=== PATIENT | female | born 1960 | race African-American/Black ===

== ENCOUNTER 2018-11-07 19:36 | Emergency (ER) | payer OTHER ==
--- NOTE | 2018-11-07 19:43 | PDOC ---
Rapid Medical Evaluation Time Seen by Provider: 11/07/18 19:38 Medical Evaluation: Allergies Allergy/AdvReac Type Severity Reaction Status Date / Time Penicillins Allergy Intermediate Hives Verified 11/15/13 10:12 11/07/18 19:39 I have performed a brief in-person evaluation of this patient. The patient presents with a chief complaint of: bumps on tongue x2 weeks Pertinent physical exam findings: firm lesion present to left posterior tongue I have ordered the following: rpr The patient will proceed to the ED for further evaluation. 11/07/18 19:43 Discharge Disposition - Diagnosis Tongue lesion - Referrals - Patient Instructions - Post Discharge Activity
[2018-11-07 19:44] VITALS: BP 158/74; PULSE 57; TEMP 97.5; BMI 26.1
--- NOTE | 2018-11-07 20:23 | PDOC ---
History of Present Illness - General Chief Complaint: Oral Ulcers Stated Complaint: PAIN IN MOUTH Time Seen by Provider: 11/07/18 19:38 - History of Present Illness Initial Comments: 11/07/18 20:22 58-year-old female presents for evaluation of 2 oral lesions was sent been present for the last 2 weeks. She has some difficulty swallowing no systemic symptoms. She is unsure what the lesions are. Past History - Past Medical History Allergies/Adverse Reactions: Allergies Allergy/AdvReac Type Severity Reaction Status Date / Time Penicillins Allergy Intermediate Hives Verified 11/07/18 19:39 Home Medications: Ambulatory Orders NK [No Known Home Medication] 11/07/18 Anemia: No Asthma: No Cancer: No Cardiac Disorders: No CVA: No COPD: No CHF: No Dementia: No Diabetes: No GI Disorders: No Disorders: No HTN: No Hypercholesterolemia: No Kidney Stones: No Seizures: Yes (etoh related Last 3 days ago) Thyroid Disease: No - Surgical History Orthopedic Surgery: Yes (L ankle fx sx in 2003 L shoulder sx for fx) - Reproductive History PID: No - Suicide/Smoking/Psychosocial Hx Smoking History: Current every day smoker Have you smoked in the past 12 months: Yes Number of Cigarettes Smoked Daily: 10 Information on smoking cessation initiated: No 'Breaking Loose' booklet given: 11/15/13 Hx Alcohol Use: No Drug/Substance Use Hx: No Substance Use Type: Alcohol Hx Substance Use Treatment: Yes ([facility] 10 years [facility]) Review of Systems - Review of Systems HEENTM: Yes: See HPI *Physical Exam - Vital Signs Last Vital Signs Temp Pulse Resp BP Pulse Ox 97.5 F L 57 L 15 158/74 98 11/07/18 19:40 11/07/18 19:40 11/07/18 19:40 11/07/18 19:40 11/07/18 19:40 - Physical Exam Comments: 11/07/18 20:21 HEAD: NC/AT EYES: Conjuntiva clear NOSE: No d/c THROAT: Moist mucous membrances, oral pharanx clear, uvula midline; there are 2 circumferentially discrete lesions subcentimeter on either side of the posterior aspect of the tongue. Without surrounding erythema. MS: Full ROM in all joints without edema NEUROLOGIC: No gross sensory or motor deficits, NVID SKIN: Normal color and temperature no lesions or rashes Medical Decision Making - Medical Decision Making 11/07/18 20:21 These lesions are unclear etiology I will have patient follow-up with oral surgery. No emergent intervention is necessary tonight. *DC/Admit/Observation/Transfer Diagnosis at time of Disposition: Tongue lesion - Discharge Dispostion Disposition: HOME Condition at time of disposition: Stable Decision to Admit order: No - Referrals Referrals: Desmond Bennett MD [Primary Care Provider] - Rocio Javed MD [Non Staff, Medical] - Leo Cooper [Staff Physician] - Hugo Hatch [Non Staff, Medical] - Mu Charles MD [Non Staff, Medical] - Michelle Arreaga DMD [Staff Physician] - Mu Steinberg [Non Staff, Medical] - Rudy Blanco [Staff Physician] - Olivier Delatorre MD [Non Staff, Medical] - Praful Maldonado MD [Non Staff, Medical] - Perry Michel MD [Non Staff, Medical] - Ta Hill MD [Non Staff, Medical] - Napoleon Calvillo MD [Non Staff, Medical] - Chapincito Day DDS [Non Staff, Medical] - Rodolfo Mcallister [Non Staff, Medical] - - Patient Instructions Additional Instructions: Follow-up with oral surgery in 1-2 days for further evaluation and treatment options return to the emergency room should symptoms worsen. - Post Discharge Activity
== END 2018-11-07 20:28 | disposition home or self-care (01) ==
LOC: JERFT 19:36
DX: K14.8 Other diseases of tongue (principal); G40.509 Epileptic seizures related to external causes, not intractable, without status epilepticus; F17.210 Nicotine dependence, cigarettes, uncomplicated; F10.10 Alcohol abuse, uncomplicated
CPT/HCPCS: 99281-25

== ENCOUNTER 2020-12-01 17:04 | Emergency (ER) | payer OTHER ==
[2020-12-01 17:15] VITALS: TEMP 98.7; BMI 27.4
[2020-12-01 18:47] LABS: BASO % 0.6 % (0-2.0); EOS % 1.5 % (0-4.5); HEMATOCRIT 41.9 % (32.4-45.2); LYMPH % 38.9 % (8-40); MCH 29.2 pg (25.7-33.7); MCHC 33.4 g/dl (32.0-36.0); MEAN CELL VOLUME 87.4 fl (80-96); MEAN PLT VOLUME 8.5 fl (7.5-11.1); MONO % 6.5 % (3.8-10.2); NEUT % 52.5 % (42.8-82.8); PLATELET COUNT 280 K/MM3 (134-434); RBC 4.79 M/mm3 (3.60-5.2); RDW 13.2 % (11.6-15.6); WHITE BLOOD COUNT 6.7 K/mm3 (4.0-10.0)
[2020-12-01] MEDS ORDERED: VANCOMYCIN 1 GM in D5W (PRE-DOCKED) 1,000 MG/250 ML IVPB ONE (18:54)
[2020-12-01] MEDS ORDERED: CEFTRIAXONE 1,000 MG in DEXTROSE 5%-WATER - 50 ML IVPB ONE (18:55)
[2020-12-01] MEDS ORDERED: CEFTRIAXONE 1 GM/50 ML BAG ONE (18:57)
[2020-12-01] MEDS ORDERED: morphine CARPU-JECT 4 MG/1 ML DISP.SYRIN IVPUSH ONE (18:59)
[2020-12-01] MEDS ORDERED: morphine SULFATE 4 MG/ML VIAL ONE (19:00)
[2020-12-01 19:01] LABS: CALCIUM 10.1 mg/dL (8.5-10.1)
[2020-12-01 19:02] LABS: ALBUMIN 3.6 g/dl (3.4-5.0); BLOOD UREA NITROGEN 12.2 mg/dL (7-18)
[2020-12-01 19:05] LABS: CREATININE 0.8 mg/dL (0.55-1.3)
[2020-12-01 19:06] LABS: BILIRUBIN,TOTAL 0.4 mg/dL (0.2-1)
[2020-12-01 19:07] LABS: TOT PROT 7.9 g/dl (6.4-8.2)
[2020-12-01 19:45] LABS: ERYTHROCYTE SEDIMENTATION RATE 54 mm/hr (0-30)
[2020-12-01] MEDS ORDERED: VANCOMYCIN 1 GRAM (PRE-DOCKED) 1,000 MG/250 ML BAG IVPB ONE (19:47)
[2020-12-01] MEDS ORDERED: CLINDAMYCIN 600MG PREMIX IVPB 600 MG/50 ML BAG IVPB ONE ×2 (20:01→20:26)
[2020-12-01] MEDS ORDERED: CLINDAMYCIN HCL 300 MG CAPSULE PO STA (20:35)
[2020-12-01] MEDS ORDERED: CLINDAMYCIN HCL 150 MG CAPSULE (FP) ONE (20:44)
[2020-12-01 20:56] VITALS: BP 135/76; PULSE 68
[2020-12-01 21:27] LABS: BF WBC & OTHER NUCLEATED CELLS 2596 /mm3
[2020-12-01 21:44] LABS: BODY FLUID MONOCYTE 20 %
== END 2020-12-01 22:05 | disposition home or self-care (01) ==
LOC: JER 17:04
PROC: 3E033GC Introduction of Other Therapeutic Substance into Peripheral Vein, Percutaneous Approach (ICD-10-PCS; principal; 2020-12-01)
DX: M25.562 Pain in left knee (principal)
CPT/HCPCS: 36415; 73560-TC-LT-FY; 80053; 85025; 85651; 86140; 87040; 87070; 87075; 87205; 93005; 93010; 99285-25; C9803; U0003; U0005

== ENCOUNTER 2021-12-14 21:18 | Inpatient (IN) | payer OTHER ==
[2021-12-15] MEDS ORDERED: KETOROLAC TROMETHAMINE 30 MG/1 ML VIAL IM ONE (00:21)
[2021-12-15] MEDS ORDERED: LIDOCAINE 5% TOPICAL PATCH TP ONE (00:21)
[2021-12-15] MEDS ORDERED: LIDOCAINE 5% TOPICAL PATCH ONE (00:25)
[2021-12-15] MEDS ORDERED: KETOROLAC TROMETHAMINE 30 MG/1 ML VIAL ONE (00:25)
[2021-12-15] MEDS ORDERED: ACETAMINOPHEN 325 MG TABLET (FP) ONE (04:47)
[2021-12-15] MEDS ORDERED: METHOCARBAMOL 500 MG TABLET ONE (04:47)
[2021-12-15] MEDS ORDERED: diazePAM 5 MG TABLET ONE (04:50)
[2021-12-15] MEDS ORDERED: ACETAMINOPHEN 500 MG TABLET (FP) PO ONE (04:51)
[2021-12-15] MEDS ORDERED: diazePAM 5 MG TABLET PO ONE (04:51)
[2021-12-15 08:25] LABS: CALCIUM 9.3 mg/dL (8.5-10.1)
[2021-12-15 08:26] LABS: ALBUMIN 3.7 g/dl (3.4-5.0); BLOOD UREA NITROGEN 12.2 mg/dL (7-18)
[2021-12-15 08:29] LABS: CREATININE 0.8 mg/dL (0.55-1.3)
[2021-12-15 08:31] LABS: BILIRUBIN,TOTAL 0.5 mg/dL (0.2-1); TOT PROT 7.3 g/dl (6.4-8.2)
[2021-12-15 09:02] LABS: HEMATOCRIT 40.1 % (32.4-45.2); HEMOGLOBIN 13.3 GM/dL (10.7-15.3); MCH 28.5 pg (25.7-33.7); MCHC 33.2 g/dl (32.0-36.0); MEAN CELL VOLUME 85.8 fl (80-96); MEAN PLT VOLUME 8.5 fl (7.5-11.1); PLATELET COUNT 238 10^3/uL (134-434); RBC 4.67 M/mm3 (3.60-5.2); RDW 13.4 % (11.6-15.6); WHITE BLOOD COUNT 8.1 K/mm3 (4.0-10.0)
[2021-12-15] MEDS ORDERED: morphine CARPU-JECT 2 MG/1 ML DISP.SYRIN IVPUSH ONE (09:45)
[2021-12-15] MEDS ORDERED: ACETAMINOPHEN 1000 MG/100 ML BAG IVPB PRN (10:01)
[2021-12-15] MEDS ORDERED: ENOXAPARIN NA (PORCINE) 40 MG/0.4 ML DISP.SYRIN SQ ONE (10:20)
[2021-12-15] MEDS: ENOXAPARIN NA (PORCINE) 40 MG/0.4 ML DISP.SYRIN SQ SCH (10:29)
[2021-12-15] MEDS ORDERED: CYCLOBENZAPRINE HCL 5 MG TABLET ONE (11:33)
[2021-12-15] MEDS: CYCLOBENZAPRINE HCL 5 MG TABLET PO ONE ×2 (11:36→18:29)
[2021-12-15 17:06] LABS: PH,URINE 6.5 (5.0-8.0); URINE APPEARANCE CLEAR; URINE BILIRUBIN NEGATIVE (NEGATIVE); URINE COLOR YELLOW; URINE GLUCOSE (UA) NEGATIVE (NEGATIVE); URINE KETONE NEGATIVE (NEGATIVE); URINE LEUK ESTERASE NEGATIVE (NEGATIVE); URINE NITRITE NEGATIVE (NEGATIVE); URINE PROTEIN NEGATIVE (NEGATIVE); URINE UROBILINOGEN 0.2 mg/dL (0.2-1.0)
[2021-12-16] MEDS: LIDOCAINE PATCH REMOVAL MC SCH (01:34)
[2021-12-16 03:50] VITALS: BMI 29.7
[2021-12-16] MEDS: ENOXAPARIN NA (PORCINE) 40 MG/0.4 ML DISP.SYRIN SQ SCH (09:37)
[2021-12-16] MEDS ORDERED: amLODIPine BESYLATE 5 MG TABLET (FP) PO SCH (10:00)
[2021-12-16] MEDS ORDERED: ACETAMINOPHEN 1000 MG/100 ML BAG IVPB PRN (11:00)
[2021-12-16 11:21] LABS: BASO % 0.3 % (0-2.0); EOS % 2.6 % (0-4.5); HEMOGLOBIN 13.1 GM/dL (10.7-15.3); LYMPH % 32.2 % (8-40); MCH 28.4 pg (25.7-33.7); MCHC 33.6 g/dl (32.0-36.0); MEAN CELL VOLUME 84.7 fl (80-96); MEAN PLT VOLUME 8.2 fl (7.5-11.1); MONO % 5.8 % (3.8-10.2); NEUT % 59.1 % (42.8-82.8); PLATELET COUNT 237 10^3/uL (134-434); RBC 4.61 M/mm3 (3.60-5.2); RDW 13.3 % (11.6-15.6); WHITE BLOOD COUNT 6.6 K/mm3 (4.0-10.0)
[2021-12-16 11:40] LABS: ALBUMIN 3.2 g/dl (3.4-5.0); BLOOD UREA NITROGEN 15.3 mg/dL (7-18); CALCIUM 9.1 mg/dL (8.5-10.1)
[2021-12-16 11:43] LABS: CREATININE 0.8 mg/dL (0.55-1.3); PHOSPHOROUS 3.3 mg/dL (2.5-4.9)
[2021-12-16 11:44] LABS: BILIRUBIN,TOTAL 0.4 mg/dL (0.2-1); TOT PROT 6.9 g/dl (6.4-8.2)
[2021-12-16 13:02] LABS: INR 0.91 (0.83-1.09); PROTHROMBIN TIME (PATIENT) 10.5 SEC (9.7-13.0)
[2021-12-16] MEDS: traMADol HCL 50 MG TABLET PO PRN (17:20)
[2021-12-16] MEDS ORDERED: PATIENT'S OWN MEDICATION (NON-FORMULARY) (Meloxicam [Meloxicam] 15 MG Tablet) PO SCH (22:00)
[2021-12-17] MEDS: LIDOCAINE PATCH REMOVAL MC SCH (00:43)
[2021-12-17] MEDS ORDERED: amLODIPine BESYLATE 5 MG TABLET (FP) PO ONE (07:29)
[2021-12-17] MEDS ORDERED: GENTAMICIN SO4 80 MG/2 ML VIAL ONE (07:44)
[2021-12-17] MEDS ORDERED: THROMBIN (BOVINE) 20,000 UNIT VIAL TP ONE (07:44)
[2021-12-17] MEDS ORDERED: LIDOCAINE 1%/EPI 1:100000 (20 ML MULTI DOSE VIAL) ONE (07:45)
[2021-12-17] MEDS ORDERED: TIZANIDINE HCL 2 MG TABLET PO PRN (12:42)
[2021-12-17 13:19] LABS: BASO % 0.8 % (0-2.0); EOS % 2.4 % (0-4.5); HEMATOCRIT 42.3 % (32.4-45.2); HEMOGLOBIN 14.5 GM/dL (10.7-15.3); LYMPH % 37.3 % (8-40); MCH 28.9 pg (25.7-33.7); MCHC 34.4 g/dl (32.0-36.0); MEAN CELL VOLUME 84.2 fl (80-96); MONO % 6.1 % (3.8-10.2); NEUT % 53.4 % (42.8-82.8); PLATELET COUNT 240 10^3/uL (134-434); RBC 5.02 M/mm3 (3.60-5.2); RDW 13.2 % (11.6-15.6); WHITE BLOOD COUNT 6.5 K/mm3 (4.0-10.0)
[2021-12-17 13:26] LABS: INR 0.98 (0.83-1.09); PROTHROMBIN TIME (PATIENT) 11.3 SEC (9.7-13.0)
[2021-12-17 13:29] LABS: ACTIVATED PTT 35.5 SECONDS (25.2-36.5)
[2021-12-17 13:42] LABS: BLOOD UREA NITROGEN 12.7 mg/dL (7-18); CALCIUM 9.2 mg/dL (8.5-10.1)
[2021-12-17 13:43] LABS: ALBUMIN 3.5 g/dl (3.4-5.0)
[2021-12-17 13:46] LABS: CREATININE 0.6 mg/dL (0.55-1.3)
[2021-12-17 13:47] LABS: BILIRUBIN,TOTAL 0.4 mg/dL (0.2-1); TOT PROT 7.2 g/dl (6.4-8.2)
[2021-12-17] MEDS ORDERED: ACETAMINOPHEN 500 MG TABLET (FP) PO SCH (14:00)
[2021-12-17] MEDS ORDERED: GABAPENTIN 300 MG CAPSULE PO SCH (14:00)
[2021-12-17 15:09] VITALS: TEMP 98.2
[2021-12-17] MEDS: traMADol HCL 50 MG TABLET PO PRN (15:57)
[2021-12-17 18:09] VITALS: BP 150/72; PULSE 59
[2021-12-17] MEDS ORDERED: LIDOCAINE PATCH REMOVAL MC SCH (22:00)
[2021-12-18] MEDS ORDERED: amLODIPine BESYLATE 5 MG TABLET (FP) PO SCH (10:00)
[2021-12-18] MEDS ORDERED: LIDOCAINE 5% TOPICAL PATCH TP SCH (10:00)
== END 2021-12-17 19:21 | disposition home health service (06) | DRG 347 ==
LOC: JERFT 21:18 → JERBED 12-15 06:41 → OBSVTOIN 12-15 15:39 → J5S 12-15 21:24
PROVIDERS: ADMIT Internal Medicine; ATTEND Internal Medicine
DX: M50.121 Cervical disc disorder at C4-C5 level with radiculopathy (principal); M48.02 Spinal stenosis, cervical region; I10 Essential (primary) hypertension; G40.909 Epilepsy, unspecified, not intractable, without status epilepticus; F17.210 Nicotine dependence, cigarettes, uncomplicated
CPT/HCPCS: 36415; 72125-TC; 72141-TC; 80053; 81003; 83735; 84100; 84443; 85025; 85027; 85610; 85730; 86850; 86900; 86901; 87086; 93306-TC; 97116-GP; 97161-GP; 99285-25; C9803-CS; G0378; U0003; U0005

== ENCOUNTER 2022-02-05 04:09 | Day surgery (SDC) | payer OTHER ==
[2022-02-02 16:06] VITALS: BMI 29.0
[2022-02-05] MEDS ORDERED: BUPIVACAINE HCL/PF 0.5% (5MG/ML) 10 ML VIAL ONE ×2 (08:04→12:44)
[2022-02-05] MEDS ORDERED: LIDOCAINE HCL/PF 1% SDV 5ML VIAL ONE (08:04)
[2022-02-05 10:26] VITALS: RESP 18
[2022-02-05] MEDS ORDERED: BUPIVACAINE HCL/PF 0.5% (5MG/ML) 10 ML VIAL IJ ONE (12:50)
[2022-02-05 16:28] VITALS: BP 132/77; PULSE 60; TEMP 97.8
== END 2022-02-05 13:40 | disposition home or self-care (01) ==
LOC: JASU-SURG 04:09
PROVIDERS: ATTEND Pain Medicine Pain Medicine
PROC: 3E0T33Z Introduction of Anti-inflammatory into Peripheral Nerves and Plexi, Percutaneous Approach (ICD-10-PCS; 2022-02-05)
PROC: 3E0T3BZ Introduction of Anesthetic Agent into Peripheral Nerves and Plexi, Percutaneous Approach (ICD-10-PCS; principal; 2022-02-05 11:30)
DX: M47.812 Spondylosis without myelopathy or radiculopathy, cervical region (principal)
CPT/HCPCS: 76000-TC-FY

== ENCOUNTER 2022-03-07 17:53 | Emergency (ER) | payer OTHER ==
[2022-03-07 17:57] VITALS: BP 131/77; PULSE 85; RESP 18; TEMP 97.6; BMI 28.9
[2022-03-07] MEDS ORDERED: KETOROLAC TROMETHAMINE 30 MG/1 ML VIAL IM ONE (18:16)
[2022-03-07] MEDS ORDERED: METHOCARBAMOL 500 MG TABLET PO ONE (18:16)
[2022-03-07] MEDS ORDERED: KETOROLAC TROMETHAMINE 30 MG/1 ML VIAL ONE (18:19)
[2022-03-07] MEDS ORDERED: METHOCARBAMOL 500 MG TABLET ONE (18:19)
== END 2022-03-07 18:25 | disposition home or self-care (01) ==
LOC: JERFT 17:53
PROC: 3E023GC Introduction of Other Therapeutic Substance into Muscle, Percutaneous Approach (ICD-10-PCS; principal; 2022-03-07)
DX: M54.41 Lumbago with sciatica, right side (principal)
CPT/HCPCS: 99284-25

== ENCOUNTER 2022-03-09 04:33 | Day surgery (SDC) | payer OTHER ==
[2022-03-05 16:22] VITALS: BMI 28.9
[2022-03-09] MEDS ORDERED: BUPIVACAINE HCL 50 ML ONE (07:11)
[2022-03-09] MEDS ORDERED: LIDOCAINE HCL/PF 1% SDV 5ML VIAL ONE (07:11)
[2022-03-09] MEDS ORDERED: BUPIVACAINE HCL/PF 0.5% (5MG/ML) 10 ML VIAL IJ ONE (10:06)
[2022-03-09 11:56] VITALS: RESP 18
[2022-03-09 12:00] VITALS: BP 149/78; PULSE 64; TEMP 97.9
== END 2022-03-09 11:25 | disposition home or self-care (01) ==
LOC: JASU-SURG 04:33
PROVIDERS: ATTEND Pain Medicine Pain Medicine
PROC: 3E0T33Z Introduction of Anti-inflammatory into Peripheral Nerves and Plexi, Percutaneous Approach (ICD-10-PCS; 2022-03-09)
PROC: 3E0T3BZ Introduction of Anesthetic Agent into Peripheral Nerves and Plexi, Percutaneous Approach (ICD-10-PCS; principal; 2022-03-09 09:00)
DX: M47.812 Spondylosis without myelopathy or radiculopathy, cervical region (principal)
CPT/HCPCS: 76000-TC-FY

== ENCOUNTER 2022-04-06 04:44 | Day surgery (SDC) | payer OTHER ==
[2022-04-02 19:37] VITALS: BMI 28.9
[2022-04-06] MEDS ORDERED: DEXAMETHASONE SOD PHOSPHATE 10 MG/1 ML VIAL ONE (07:35)
[2022-04-06] MEDS ORDERED: LIDOCAINE HCL/PF 1% SDV 5ML VIAL ONE (07:35)
[2022-04-06 09:28] VITALS: RESP 20
[2022-04-06] MEDS ORDERED: IOHEXOL 180 MG/1 ML ML IJ ONE (10:16)
[2022-04-06] MEDS ORDERED: DEXAMETHASONE SOD PHOSPHATE 10 MG/1 ML VIAL IVPUSH ONE (10:16)
[2022-04-06] MEDS ORDERED: LIDOCAINE HCL 1%, 10 MG/ML (50 mL VIAL) NR ONE (10:18)
[2022-04-06 10:47] VITALS: BP 127/84; PULSE 75; TEMP 97.8
== END 2022-04-06 11:00 | disposition home or self-care (01) ==
LOC: JASU-SURG 04:44
PROVIDERS: ATTEND Pain Medicine Pain Medicine
PROC: B01BYZZ Fluoroscopy of Spinal Cord using Other Contrast (ICD-10-PCS; 2022-04-06)
PROC: 3E0R33Z Introduction of Anti-inflammatory into Spinal Canal, Percutaneous Approach (ICD-10-PCS; principal; 2022-04-06 10:30)
DX: M54.12 Radiculopathy, cervical region (principal)
CPT/HCPCS: 76000-TC-FY; J1100

== ENCOUNTER 2022-07-06 20:20 | Emergency (ER) | payer OTHER ==
[2022-07-06 20:29] VITALS: BP 144/84; PULSE 85; RESP 17; TEMP 97.8; BMI 29.2
== END 2022-07-06 20:40 | disposition left against medical advice (07) ==
LOC: JER 20:20
DX: R11.0 Nausea (principal)
CPT/HCPCS: 99281-25

== ENCOUNTER 2023-07-28 18:29 | Emergency (ER) | payer OTHER ==
[2023-07-28 18:36] VITALS: BP 161/73; PULSE 69; RESP 18; TEMP 97.5; BMI 26.9
[2023-07-28] MEDS ORDERED: CYCLOBENZAPRINE HCL 10 MG TABLET (FP) PO ONE (19:16)
[2023-07-28] MEDS ORDERED: LIDOCAINE 4% PATCH TP ONE ×2 (19:16→19:23)
[2023-07-28] MEDS ORDERED: ACETAMINOPHEN 325 MG TABLET (FP) PO ONE (19:16)
[2023-07-28] MEDS ORDERED: KETOROLAC TROMETHAMINE 15 MG/ML VIAL IM ONE (19:16)
[2023-07-28] MEDS ORDERED: ACETAMINOPHEN 325 MG TABLET (FP) ONE (19:23)
[2023-07-28] MEDS ORDERED: KETOROLAC TROMETHAMINE 15 MG/ML VIAL ONE (19:23)
[2023-07-28] MEDS ORDERED: CYCLOBENZAPRINE HCL 10 MG TABLET (FP) ONE (19:23)
[2023-07-28] MEDS ORDERED: LIDOCAINE PATCH REMOVAL MC SCH (22:00)
== END 2023-07-28 20:39 | disposition home or self-care (01) ==
LOC: JER 18:29
PROC: 3E0233Z Introduction of Anti-inflammatory into Muscle, Percutaneous Approach (ICD-10-PCS; principal; 2023-07-28)
DX: S16.1XXA Strain of muscle, fascia and tendon at neck level, initial encounter (principal); S46.011A Strain of muscle(s) and tendon(s) of the rotator cuff of right shoulder, initial encounter; S29.012A Strain of muscle and tendon of back wall of thorax, initial encounter; M54.2 Cervicalgia; M25.511 Pain in right shoulder; M54.6 Pain in thoracic spine; V49.50XA Passenger injured in collision with unspecified motor vehicles in traffic accident, initial encounter; Y92.410 Unspecified street and highway as the place of occurrence of the external cause
CPT/HCPCS: 99284-25

== ENCOUNTER 2024-08-30 07:23 | Day surgery (SDC) | payer OTHER ==
[2024-08-22 11:58] VITALS: BMI 28.6
[2024-08-30] MEDS ORDERED: ACETAMINOPHEN 500 MG TABLET (FP) PO PRN (09:38)
[2024-08-30 12:41] VITALS: RESP 18; TEMP 97
[2024-08-30] MEDS: LIDOCAINE 1% P/F 10 MG/ML VIAL INF ONE (13:24)
[2024-08-30] MEDS: TRIAMCINOLONE ACET 40MG/1ML VIAL IJ ONE (13:25)
[2024-08-30] MEDS: IOHEXOL 180 MG/1 ML ML IJ ONE (13:25)
[2024-08-30 13:50] VITALS: BP 134/81; PULSE 67
== END 2024-08-30 14:30 | disposition home or self-care (01) ==
LOC: JASU-SURG 07:23
PROVIDERS: ATTEND Pain Medicine Pain Medicine
PROC: 3E0U3BZ Introduction of Anesthetic Agent into Joints, Percutaneous Approach (ICD-10-PCS; 2024-08-30)
PROC: 3E0U33Z Introduction of Anti-inflammatory into Joints, Percutaneous Approach (ICD-10-PCS; principal; 2024-08-30 13:15)
DX: M16.12 Unilateral primary osteoarthritis, left hip (principal)
CPT/HCPCS: 76000-TC-FY

== ENCOUNTER 2024-11-14 07:21 | Day surgery (SDC) | payer OTHER ==
[2024-11-13 14:07] VITALS: BMI 27.3
[2024-11-14 10:44] VITALS: TEMP 97.7
[2024-11-14 15:21] VITALS: BP 104/70; PULSE 68; RESP 14
== END 2024-11-14 15:40 | disposition home or self-care (01) ==
LOC: JASU-ENDO 07:21
PROVIDERS: ATTEND Internal Medicine Gastroenterology
PROC: 0DBP8ZX Excision of Rectum, Via Natural or Artificial Opening Endoscopic, Diagnostic (ICD-10-PCS; 2024-11-14)
PROC: 0DBM8ZX Excision of Descending Colon, Via Natural or Artificial Opening Endoscopic, Diagnostic (ICD-10-PCS; principal; 2024-11-14 13:00)
DX: D12.4 Benign neoplasm of descending colon (principal); K62.1 Rectal polyp
CPT/HCPCS: 88305-TC